=== PATIENT | male | born 1990 | race Caucasian/White ===

== ENCOUNTER 2016-02-29 12:14 | Emergency (ER) | payer BC ==
[2016-02-29 12:35] VITALS: BP 127/72
--- NOTE | 2016-02-29 12:36 | ER Document Report ---
ED Medical Screen (RME) - General Stated Complaint: POSSIBLE HAND INJURY Time seen by provider: 12:34 Mode of Arrival: Ambulatory Information source: Patient Notes: 25-year-old male presents to ED for laceration to his left palm while at work. He states he was slicing bread with the slicer and he went to [place] and sliced his finger. He now has numbness in the fourth finger he is able to move the finger [id number]. Does not remember when his last tetanus shot was. I have greeted and performed a rapid initial assessment of this patient. A comprehensive ED assessment and evaluation of the patient, analysis of test results and completion of medical decision making process will be conducted by an additional ED providers. TRAVEL OUTSIDE OF THE [place] IN LAST 30 DAYS: No - Related Data Allergies/Adverse Reactions: amoxicillin [Amoxicillin] Allergy (Verified 07/06/14 14:11) Past Medical History - Immunizations Hx Diphtheria, Pertussis, Tetanus Vaccination: Yes
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
[2016-02-29] MEDS ORDERED: CLINDAMYCIN HCL 150 MG CAPSULE PO ONE (13:50)
== END 2016-02-29 14:15 | disposition home or self-care (01) ==
LOC: ER 12:14
DX: S61.432A Puncture wound without foreign body of left hand, initial encounter (principal); R20.2 Paresthesia of skin; W26.0XXA Contact with knife, initial encounter; Y93.G1 Activity, food preparation and clean up; Y99.0 Civilian activity done for income or pay; F17.200 Nicotine dependence, unspecified, uncomplicated
CPT/HCPCS: 99283

== ENCOUNTER 2017-04-04 00:35 | Emergency (ER) | payer BC, OTHER ==
[2017-04-04] MEDS ORDERED: HYDROMORPHONE HCL INJ/PF 2 MG/ML AMPULE IM ONE (01:13)
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
--- NOTE | 2017-04-04 01:52 | RADIOLOGY REPORT (SQ) ---
EXAM DESCRIPTION: HAND LEFT 3 VIEWS CLINICAL HISTORY: trauma COMPARISON: None. FINDINGS: 3 views of the left hand. No acute fracture or dislocation. Normal osseous mineralization. IMPRESSION: No acute fracture or dislocation.
--- NOTE | 2017-04-04 01:55 | RADIOLOGY REPORT (SQ) ---
EXAM DESCRIPTION: CT HEAD WITHOUT CLINICAL HISTORY: trauma COMPARISON: None available TECHNIQUE: Axial CT of the head obtained from the skull apex to the skull base without contrast. FINDINGS: No acute intracranial hemorrhage identified. No mass, mass effect, shift of the midline, abnormal extra-axial fluid collection or CT evidence of acute ischemic change identified. The ventricular system is unremarkable. No acute abnormalities of the supratentorial white matter, basal ganglia, cerebellum, or brainstem. No skull fracture identified. Contusion in the left preseptal periorbital subcutaneous soft tissues. Left inferior orbital floor blowout fracture. Opacification of the left maxillary sinus. Please see facial bone CT for further details. Left nasal bone fractures. DLP:1162.97 mGy-cm IMPRESSION: 1. No acute intracranial abnormality identified. 2. Moderately displaced left orbital floor blowout fracture with opacification of the left maxillary sinus. Left nasal bone fractures. Please see CT of the facial bones for further details. This exam was performed according to our departmental dose-optimization program, which includes automated exposure control, adjustment of the mA and/or kV according to patient size and/or use of iterative reconstruction technique.
--- NOTE | 2017-04-04 02:01 | RADIOLOGY REPORT (SQ) ---
EXAM DESCRIPTION: CT FACIAL AREA WITHOUT CLINICAL HISTORY: trauma. Left facial injury. COMPARISON: None available TECHNIQUE: Axial CT of the cervical spine obtained without contrast. FINDINGS: Acute moderately displaced left orbital floor blowout fracture. Hemorrhagic fluid in the left maxillary sinus. Herniation of orbital fat through the defect. The inferior rectus muscle is not definitely involved. Comminuted left nasal bone fracture. Nondisplaced left fracture of the medial left orbital wall. The lateral left orbital wall is intact. The right orbital pham are intact. The globes are intact bilaterally. No abnormalities in the intraconal contents of the globes bilaterally. Extensive left preseptal periorbital subcutaneous contusion. Fracture of the left medial maxillary antral wall. The pterygoid plates are intact. The zygomatic processes are intact. The right maxillary antral pham are intact. The maxillary hard palate is intact. The mandible is intact without mandibular condylar dislocation. No abnormalities of visualized cervical spine or skull base. Mastoid air cells are well aerated. No abnormalities of visualized nasopharynx, oropharynx, or hypopharynx. Visualized parotid and submandibular glands are unremarkable. No cervical lymphadenopathy. DLP: 579.44 mGy-cm IMPRESSION: 1. Acute moderately displaced left orbital floor blowout fracture with herniation of orbital fat through the defect. The inferior rectus muscle is not definitely involved. Correlation for inferior rectus muscle function recommended. 2. Comminuted left nasal bone fracture. 3. Nondisplaced fracture of the medial left orbital wall. 4. Minimally displaced fracture of the left medial maxillary antral wall. 5. Extensive left preseptal periorbital subcutaneous contusion. This exam was performed according to our departmental dose-optimization program, which includes automated exposure control, adjustment of the mA and/or kV according to patient size and/or use of iterative reconstruction technique.
[2017-04-04 04:03] VITALS: BP 139/65
== END 2017-04-04 04:03 | disposition home or self-care (01) ==
LOC: ER 00:35
DX: S02.32XA Fracture of orbital floor, left side, initial encounter for closed fracture (principal); S02.2XXA Fracture of nasal bones, initial encounter for closed fracture; Y04.8XXA Assault by other bodily force, initial encounter; Z88.0 Allergy status to penicillin
CPT/HCPCS: 99284; 96372; 73130; 70450; 70486; J1170

== ENCOUNTER 2017-04-10 17:14 | Day surgery (SDC) | payer BC, OTHER ==
[2017-04-09 10:31] LABS: ABSOLUTE EOSINOPHILS # (AUTO) 0.4 10^3/uL (0.0-0.6); ABSOLUTE LYMPHOCYTES (AUTO) 2.4 10^3/uL (0.5-4.7); ABSOLUTE MONOCYTES (AUTO) 0.6 10^3/uL (0.1-1.4); ABSOLUTE NEUT (AUTO) 4.5 10^3/uL (1.7-8.2); BASOPHILS % (AUTO) 0.2 % (0-2); EOSINOPHILS % (AUTO) 5.3 % (0-6); HEMATOCRIT 45.4 % (37.9-51.0); HEMOGLOBIN 15.7 g/dL (13.5-17.0); LYMPHOCYTES % (AUTO) 30.2 % (13-45); MEAN CORPUSCULAR HEMOGLOBIN 31.2 pg (27.0-33.4); MEAN CORPUSCULAR HGB CONC 34.5 g/dL (32.0-36.0); MEAN CORPUSCULAR VOLUME 90 fl (80-97); MONOCYTES % (AUTO) 7.4 % (3-13); PLATELET COUNT 287 10^3/uL (150-450); RED BLOOD COUNT 5.02 10^6/uL (4.35-5.55); SEGMENTED NEUTROPHILS % (AUTO) 56.9 % (42-78); TOTAL CELLS COUNTED % (AUTO) 100 %; WHITE BLOOD COUNT 7.8 10^3/uL (4.0-10.5)
[2017-04-10] MEDS: FENTANYL CITRATE INJ/PF 100 MCG/2 ML AMPUL ONE ×2 (17:05→17:24)
[~2017-04-10 17:14] MED LIST: ACETAMINOPHEN 100 ML IV ONE; ALBUTEROL SULFATE 0.083% NEB 2.5 MG/3 ML AMPUL NEB PRN; BUPIVACAINE HCL 0.5%-EPI 1:200000 INJ/PF 30 ML VIAL ONE; CEFAZOLIN 2 GM/D5W RTU 2 GM/50 ML RTUPB IV PRN; CLINDAMYCIN 900 MG/D5W RTU 50 ML IV ONE; DEXAMETHASONE SOD PHOSPHATE INJ 4 MG/1 ML VIAL ONE; DIPHENHYDRAMINE HCL 50 MG/ML VIAL IV PRN; FENTANYL CITRATE INJ/PF 100 MCG/2 ML AMPUL IV PRN; FENTANYL CITRATE INJ/PF 250 MCG/5 ML AMPULE ONE; GLYCOPYRROLATE INJ 0.4 MG/2 ML VIAL ONE; LACTATED RINGERS 1000 ML IV PRN; LIDOCAINE 0.5% INJ-PF (5 MG/ML) 50 ML SDV SUBCUT PRN; LIDOCAINE 2%/EPINEPHRINE INJ 1.7 ML CARTRIDGE ONE; MEPERIDINE HCL/PF INJ 25 MG/1 ML DISP.SYRIN IV PRN; MIDAZOLAM 2 MG/2 ML INJ ONE; MINERAL OIL/PETROLATUM,WHITE OPH OINT 3.5 GM OP ONE; MORPHINE SULFATE 10 MG/ML INJ IV PRN; NEOSTIGMINE METHYLSULFATE 10 MG/10 ML VIAL ONE; ONDANSETRON HCL INJ/PF 4 MG/2 ML SDV IV PRN; ONDANSETRON HCL INJ/PF 4 MG/2 ML SDV ONE; OXYCODONE-ACETAMINOPHEN 5-325 MG TABLET PO PRN; OXYMETAZOLINE HCL 0.05% NASAL SPRAY 15 ML BOTTLE ONE; POVIDONE-IODINE 5% OPH PREP SOLN 30 ML ONE; PREDNISOLONE ACETATE 1% OPH SUSP 5 ML OP PRN; PROMETHAZINE HCL INJ 25 MG/1 ML VIAL IV PRN; PROPOFOL INJ 200 MG/20 ML VIAL IV ONE; RINGERS SOLUTION,LACTATED 1,000 ML IV PRN; ROCURONIUM BROMIDE INJ 50 MG/5 ML VIAL IV ONE; SILVER SULFADIAZINE 1% CREAM 25 GM ONE; SUCCINYLCHOLINE CHLORIDE INJ 200 MG/10 ML VIAL ONE
[2017-04-10] MEDS ORDERED: NEO/POLYMYX B SULF/DEXAMETH OPH SUSP 5 ML OS ONE (18:00)
[2017-04-10] MEDS ORDERED: SILVER SULFADIAZINE 1% CREAM 25 GM TP SCH (18:00)
[2017-04-10] MEDS ORDERED: INFLUENZA ADLT QUAD (36MOS+) 2017-18 VAC 0.5 ML SYR IM PRN (19:00)
[2017-04-10] MEDS: OXYCODONE-ACETAMINOPHEN 5-325 MG TABLET PO PRN (20:19)
[2017-04-10] MEDS: NEO/POLYMYX B SULF/DEXAMETH OPH SUSP 5 ML OS SCH (22:11)
[2017-04-11] MEDS: NEO/POLYMYX B SULF/DEXAMETH OPH SUSP 5 ML OS SCH
[2017-04-11] MEDS ORDERED: NEO/POLYMYX B SULF/DEXAMETH OPH SUSP 5 ML OS SCH ×2 (06:00→10:00)
[2017-04-11 10:22] VITALS: BP 134/69
[2017-04-11] MEDS: OXYCODONE-ACETAMINOPHEN 5-325 MG TABLET PO PRN (11:29)
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
--- NOTE | 2017-04-15 08:41 | Physician Advisory Note ---
Physician Advisor ProgressNote .: Pursuant to the plan for [facility], I have reviewed the medical record for this patient. Physician Advisor Statement: Asked to review this case r.e. status. Pt brought in appropriately for outpt surgery. Experienced bleeding complication, clearly needed to be monitored closely for longer than "typical 4- 6hrs" post-op for safety, to ensure stability before d/c. In such a case, in which it is not clear whether or not additional complications will ensue requiring further acute care or whether pt's condition will stabilize without further aggressive intervention such that d/c next day will be possible, the appropriate status is Observation. Then, the next day, depending on pt response , the decision will be to either d/c pt or admit to Inpatient status. DCSummary needs to document all dx.s/co-morbidities, procedures, complications/ tx.s that required more than usual care, & hospital course, "painting the picture" for iinsurance reviewers of why pt needed the care that was given (as well as d/c meds, f/u appt.s/orders, activity recommendations). Thanks for your excellent care! CK
== END 2017-04-11 11:58 | disposition home or self-care (01) ==
LOC: OROUT 17:14 → INOR 17:14 → UNDOADMIN 17:14 → EEVIPCON 17:14 → 4S 18:27 → INOR 18:27 → 4S 18:27 → UNDODISIN 04-11 11:58 → OROUT 04-11 11:58
PROVIDERS: ATTEND Otolaryngology
PROC: 0NSBXZZ Reposition Nasal Bone, External Approach (ICD-10-PCS; 2017-04-10)
PROC: 09JY8ZZ Inspection of Sinus, Via Natural or Artificial Opening Endoscopic (ICD-10-PCS; 2017-04-10)
PROC: 0NSQ0ZZ Reposition Left Orbit, Open Approach (ICD-10-PCS; principal; 2017-04-10 12:30)
PROC: 0NUQ0JZ Supplement Left Orbit with Synthetic Substitute, Open Approach (ICD-10-PCS; 2017-04-10 12:30)
DX: S02.30XA Fracture of orbital floor, unspecified side, initial encounter for closed fracture (principal); S02.2XXA Fracture of nasal bones, initial encounter for closed fracture; Y04.0XXA Assault by unarmed brawl or fight, initial encounter; J34.2 Deviated nasal septum; H11.32 Conjunctival hemorrhage, left eye; F17.210 Nicotine dependence, cigarettes, uncomplicated; Z88.0 Allergy status to penicillin
CPT/HCPCS: 36415; 85025; 21390; 21320; 31231; J2250; J3490 ×8; J1100; J3010 ×2; J0330; J2405; J2704; J0131; 192

== ENCOUNTER → 2017-04-20 | Outpatient (CLI) | payer BC, OTHER ==
--- NOTE | 2017-04-20 16:45 | RADIOLOGY REPORT (SQ) ---
EXAM DESCRIPTION: CT ORBIT/SELLA COMBO COMPLETED DATE/TIME: 04/20/2017 4:15 pm REASON FOR STUDY: H53.2 DIPLOPIA H53.2 DIPLOPIA COMPARISON: 04/04/2017. TECHNIQUE: Pre contrast and post contrast images through the orbits windowed for bone and soft tissu e. Additional coronal and sagittal reconstructed images reviewed. All images stored on PACS. All CT scanners at this facility use dose modulation, iterative reconstruction, and/or weight based d osing when appropriate to reduce radiation dose to as low as reasonably achievable (ALARA). [facility]: Dose Right [facility]: CareDose [facility]: Dose Right [facility]: Teradose 4D [facility]: NuvoMed CONTRAST TYPE AND DOSE: contrast/concentration: Isovue 370.00 mg/ml; Total Contrast Delivered: 50.0 ml; Total Saline Delivered: 55.0 ml RENAL FUNCTION: None required. The patient is less than 50 years old. RADIATION DOSE: . LIMITATIONS: None. FINDINGS: FACIAL BONES: No fracture or bone lesion. ORBITS: Surgical repair of the fracture of the left orbital floor with placement of hardware. Symmet homero intact globes and retroorbital soft tissues. PARANASAL SINUSES: Heterogenous soft tissue and fluid in the left maxillary sinus. SOFT TISSUES: No mass or edema. No abnormal enhancement. No CT evidence of acute sinusitis. INFERIOR BRAIN: Limited view. No acute findings. OTHER: No other significant finding. IMPRESSION: POST SURGICAL REPAIR OF THE FRACTURE OF THE LEFT ORBITAL FLOOR WITH PLACEMENT OF HARDWAR E. NO ABNORMAL FINDINGS RELATED TO THE ORBITAL CONTENTS, GLOBE, EXTRAOCULAR MUSCLES, OR OPTIC NERVE. TECHNICAL DOCUMENTATION: JOB ID: [id number] Quality ID # [id number]: Final reports with documentation of one or more dose reduction techniques (e.g., Au tomated exposure control, adjustment of the mA and/or kV according to patient size, use of iterative reconstruction technique) 2010 [employer]- All Rights Reserved Reading location - IP/workstation name: [email or web address]
== END ==
LOC: RAD 16:18
PROVIDERS: ATTEND Otolaryngology
DX: H53.2 Diplopia (principal)
CPT/HCPCS: 70482